=== PATIENT | female | born 1995 | race Caucasian/White ===

== ENCOUNTER 2017-06-07 12:05 | Emergency (ER) | payer OTHER ==
--- NOTE | 2017-06-07 12:21 | EDPHY ---
H & P Time Seen by Provider: 06/07/17 12:12 HPI/ROS: CHIEF COMPLAINT: Right elbow pain laceration HISTORY OF PRESENT ILLNESS: 21-year-old immunocompetent female with up-to-date tetanus complaining of of right elbow pain laceration after she slipped on the ice this morning. Reproducible pain with range of motion. No proximal distal pain or injury. No foreign body. No proximal distal pain or injury. No paresthesia. PHYSICAL EXAM (Prior to examination, patient consented to physical exam, hands were washed and my usual and customary physical exam procedures followed) 1) GENERAL: Well-developed, well-nourished, alert and oriented. Appears to be in no acute distress. 2) HEAD: Normocephalic 3) HEENT: sclera anicteric 4) LUNGS: Breathing comfortably. 5) SKIN: Posterior elbow 2.5 cm stellate laceration which is superficial. There is no evidence of joint capsular disruption. 6) MUSCULOSKELETAL: Tender to palpation dorsal right elbow, full extension to approximately 160 degrees beyond which flexion or extension creates pain. Proximally distally nontender 7) NEUROLOGIC: Full sensation distally radial ulnar median nerve function intact Smoking Status: Current some day smoker Constitutional: Initial Vital Signs Temperature (C) 36.5 C 06/07/17 12:09 Heart Rate 87 06/07/17 12:09 Respiratory Rate 16 06/07/17 12:09 Blood Pressure 107/67 06/07/17 12:09 O2 Sat (%) 99 06/07/17 12:09 O2 Delivery Mode Room Air Allergies/Adverse Reactions: No Known Allergies Allergy (Unverified 06/07/17 12:08) Home Medications: Medication Instructions Recorded Adderall 20 mg (*) 06/07/17 Vyvanse 06/07/17 Brit 28 Tablet 06/07/17 MDM/Departure - MDM Procedures: Procedure: Laceration repair. I explained the indications, risks and benefits for both laceration repair and anesthetic administration. Verbal consent was obtained from the patient . The laceration on the right elbow was anesthetized using 0.5% bupivicaine with epinephrine . After anesthetic administered the patient was observed for a period of time and had no apparent adverse effects. The wound was cleaned, prepped, draped in normal sterile fashion and explored to its base. No foreign body seen, no foreign bodies palpated. There were no deep structures involved. The wound was repaired with 3 simple interrupted 4 0 Prolene sutures. The wound repair was simple. The procedure was performed by myself. Patient has been informed that scarring will occur, although efforts have been made to minimize this. Procedure: Splint A sling was applied by ER manufacturing maintenance technician. After application of the splint I returned and re-examined the patient. The splint was adequately immobilizing the joint and distal to the splint the patient's circulation and sensation were intact. Patient shows no signs of compartment syndrome. Was given orthopedic precautions. ED Course/Re-evaluation: Care of patient under supervision of primary Supervising physician Dr Palmer . - Depart Disposition: Home, Routine, Self-Care Clinical Impression: Right elbow pain Laceration of right elbow Qualifiers: Encounter type: initial encounter Qualified Code(s): S51.011A - Laceration without foreign body of right elbow, initial encounter Condition: Good Instructions: Laceration (ED), Care For Your Stitches (ED), Elbow Sprain (ED) Additional Instructions: Return to the ER if you develop redness, swelling, discharge, warmth to the wound, red streaks going up your arm, or any other symptoms that concern you. Referrals: Jaswant Nicole MD [Medical Doctor] - 5-7 days, call for appt. (Dr. Nicole is orthopedic doctor)
[2017-06-07 12:30] VITALS: RESP 16
[2017-06-07 13:36] VITALS: BP 115/78; PULSE 84; TEMP 97.9; O2SAT 94
== END 2017-06-07 13:33 | disposition home or self-care (01) ==
PROC: 0HQDXZZ Repair Right Lower Arm Skin, External Approach (ICD-10-PCS; principal; 2017-06-07)
DX: S51.011A Laceration without foreign body of right elbow, initial encounter (principal); F17.200 Nicotine dependence, unspecified, uncomplicated; W00.0XXA Fall on same level due to ice and snow, initial encounter; Y99.8 Other external cause status

== ENCOUNTER 2017-08-12 16:45 | Emergency (ER) | payer OTHER ==
[2017-08-12 16:53] VITALS: RESP 18
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
[2017-08-12] MEDS ORDERED: IBUPROFEN 600 MG TAB PO ONE (17:17)
[2017-08-12 17:24] VITALS: BP 114/82; PULSE 85; TEMP 98.2; O2SAT 97
[2017-08-12] MEDS ORDERED: ONDANSETRON 4MG PREPACK#2 BTL TAKEHOME ONE (17:24)
== END 2017-08-12 17:34 | disposition home or self-care (01) ==
DX: S06.0X0A Concussion without loss of consciousness, initial encounter (principal); J45.909 Unspecified asthma, uncomplicated; F17.200 Nicotine dependence, unspecified, uncomplicated; W01.198A Fall on same level from slipping, tripping and stumbling with subsequent striking against other object, initial encounter

== ENCOUNTER 2018-02-23 10:36 | Emergency (ER) | payer OTHER ==
[2018-02-23] MEDS ORDERED: IBUPROFEN 600 MG TAB PO ONE ×2 (11:29→11:30)
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
[2018-02-23 11:57] VITALS: BP 115/76
== END 2018-02-23 12:20 | disposition home or self-care (01) ==
DX: S83.92XA Sprain of unspecified site of left knee, initial encounter (principal); W03.XXXA Other fall on same level due to collision with another person, initial encounter; Y92.9 Unspecified place or not applicable; F17.200 Nicotine dependence, unspecified, uncomplicated
CPT/HCPCS: L1830